=== PATIENT | male | born 1955 | race Caucasian/White ===

== ENCOUNTER 2017-05-12 17:27 | Emergency (ER) | payer OTHER, BC ==
[2017-05-12 17:42] VITALS: BP 169/91
--- NOTE | 2017-05-12 18:42 | EDM.PDOC ---
ED HPI GENERAL MEDICAL PROBLEM - General Chief Complaint: Laceration Stated Complaint: RT SHOULDER LAC Time Seen by Provider: 05/12/17 18:33 Source of Information: Reports: Patient History Limitations: Reports: No Limitations - History of Present Illness INITIAL COMMENTS - FREE TEXT/NARRATIVE: Patient is a 62-year-old male who was replacing a sink and while carring out the porcelain sink it shattered causing a puncture wound to his right shoulder and small laceration to his chin. This occurred approximately 1600 hrs. He still has some mild bleeding from the shoulder puncture. He does take baby aspirin daily. Otherwise he does not have any additional complaints at this time. Tetanus status is up-to-date. - Related Data Allergies Allergy/AdvReac Type Severity Reaction Status Date / Time No Known Allergies Allergy Verified 05/12/17 17:38 Home Meds: Home Meds Benazepril [Lotensin] 40 mg PO DAILY 09/24/16 [History] Ezetimibe/Simvastatin [Vytorin 10-40 mg Tablet] 1 tab PO DAILY 09/24/16 [History ] Insulin Glargine,Hum.Rec.Anlog [[place] Solostar] 70 units SUBCUT DAILY 09/24/16 [History] Insulin Regular, Human [Novolin R] 10 units SUBCUT ASDIRECTED 09/24/16 [History] [place]-3 Fatty Acids [Fish Oil] 2,000 mg PO DAILY 09/24/16 [History] SitaGLIPtin [Januvia] 50 mg PO DAILY 09/24/16 [History] Past Medical History HEENT History: Reports: Impaired Vision Cardiovascular History: Reports: Hypertension Endocrine/Metabolic History: Reports: Diabetes, Type II - Infectious Disease History Infectious Disease History: Reports: Chicken Pox, Measles, Mumps - Past Surgical History Neurological Surgical History: Reports: Other (See Below) Social & Family History - Tobacco Use Smoking Status *Q: Current Every Day Smoker Years of Tobacco use: 30 Packs/Tins Daily: 0.2 Used Tobacco, but Quit: No - Caffeine Use Caffeine Use: Reports: Coffee - Recreational Drug Use Recreational Drug Use: No ED ROS GENERAL - Review of Systems Review Of Systems: ROS reveals no pertinent complaints other than HPI. ED EXAM, SKIN/RASH Exam: See Below Exam Limited By: No Limitations General Appearance: Alert, WD/WN, No Apparent Distress, Other (Small superficial laceration to the anterior chin.) Ears: Hearing Grossly Normal Nose: Normal Inspection Throat/Mouth: Normal Voice, No Airway Compromise Neck: Normal Inspection, Supple Respiratory/Chest: No Respiratory Distress, No Accessory Muscle Use Cardiovascular: Normal Peripheral Pulses, Regular Rate, Rhythm Peripheral Pulses: 2+: Radial (R) Extremities: Other (Small puncture wound to the right anterior shoulder with oozing of blood present. No painful range of motion noted. Questionable porcelain foreign body.) Neurological: Alert, Oriented, Normal Cognition, No Motor/Sensory Deficits Psychiatric: Normal Affect, Normal Mood Skin: Warm, Dry, Intact, Normal Color, No Rash ED SKIN PROCEDURES - Laceration/Wound Repair Right Shoulder Lac/Wound length In cm: 0.2 Appearance: Clean Distal NVT: Neuro & Vascular Intact Anesthetic Type: Local Local Anesthesia - Lidocaine (Xylocaine): 1% With EPI Local Anesthetic Volume: 2cc Skin Prep: Chlorhexidine (Hibiciens), Saline, Sterile Drape Exploration/Debridement/Repair: Wound Explored, Explored to Base, No Foreign Material Found Suture Size: 4-0 # of Sutures: 1 Suture Type: Prolene, Interrupted, Simple Drain Placement: No Sterile Dressing Applied: Nurse Tetanus Status Addressed: Yes Complications: No Course - Vital Signs Last Recorded V/S: Last Vital Signs Temp 96.5 F 05/12/17 17:39 Pulse 78 05/12/17 17:39 Resp 18 05/12/17 17:39 BP 169/91 H 05/12/17 17:39 Pulse Ox 98 05/12/17 17:39 - Orders/Labs/Meds Orders: Active Orders 24 hr Category Date Time Status Shoulder 1V Rt [CR] Stat Exams 05/12/17 18:39 Taken Meds: Medications Discontinued Medications Generic Name Dose Route Start Last Admin Trade Name Kitq PRN Reason Stop Dose Admin Lidocaine/Epinephrine 20 ml 05/12/17 19:51 05/12/17 19:55 Xylocaine 1% With Epinephrine 1:100,000 INJECT 05/12/17 19:52 20 ml ONETIME ONE Administration - Re-Assessments/Exams Free Text/Narrative Re-Assessment/Exam: Obtain x-ray of the right shoulder to evaluate for foreign object. X-ray did not reveal any foreign object that was radiopaque. Bleeding ceased with one suture. Dressing applied per nursing. Discharge instructions as documented. Departure - Departure Time of Disposition: :06 Disposition: Home, Self-Care 01 Condition: Good Clinical Impression: Puncture wound Facial laceration Qualifiers: Encounter type: initial encounter Qualified Code(s): S01.81XA - Laceration without foreign body of other part of head, initial encounter - Discharge Information Instructions: Puncture Wound, [id number], Laceration Care, Adult, Easy-to- Read, Stitches, [place], or Adhesive Wound Closure, [id number] Referrals: Krishan Oliver MD [Primary Care Provider] - Forms: ED Department Discharge, ED Return to Work/School Form Additional Instructions: Cleanse site twice daily with soap and water, pat dry, reapply triple antibiotic ointment. Sutures to be removed in 7 days. Return to the ED if you experience increased redness, purulent drainage, fever/chills, or any additional new complaints. - My Orders Last 24 Hours: My Active Orders 05/12/17 18:39 Shoulder 1V Rt [CR] Stat - Assessment/Plan Last 24 Hours: My Active Orders 05/12/17 18:39 Shoulder 1V Rt [CR] Stat
[2017-05-12] MEDS ORDERED: Lidocaine 1% with EPINEPHrine 1:100,000 20 ML MDV INJECT ONE (19:51)
--- NOTE | 2017-05-13 07:09 | CR ---
Right shoulder: Single AP view of the right shoulder was obtained. Comparison: No previous study. Slight calcification is seen above the right acromioclavicular joint. Acromioclavicular joint appears slightly narrowed. Glenohumeral joint is unremarkable. No opaque foreign object is seen. No acute bony abnormality is seen. Impression: 1. Incidental findings. 2. No opaque foreign object is identified. No acute bony abnormality is seen. Diagnostic code #2
== END 2017-05-12 20:10 | disposition home or self-care (01) ==
LOC: JD.ED 17:27
DX: S41.031A Puncture wound without foreign body of right shoulder, initial encounter (principal); S01.81XA Laceration without foreign body of other part of head, initial encounter; F17.210 Nicotine dependence, cigarettes, uncomplicated; I10 Essential (primary) hypertension; E11.9 Type 2 diabetes mellitus without complications; Z79.4 Long term (current) use of insulin; Z79.82 Long term (current) use of aspirin; W22.8XXA Striking against or struck by other objects, initial encounter
CPT/HCPCS: 12001; 73020-26-RT; 73020-RT; 99282-25; 99283-25

== ENCOUNTER 2018-03-12 07:45 | Day surgery (SDC) | payer BC, OTHER ==
[2018-03-12] MEDS: Polymyxin B/Trimethoprim 10 ML Bottle EYERT SCH ×4 (08:01→09:51)
[2018-03-12] MEDS: Brimonidine 0.2% Ophth Soln 5 ML Bottle EYERT SCH ×4 (08:06→09:51)
--- NOTE | 2018-03-12 08:07 | PCM.PREANE ---
Preanesthetic Assessment - Anesthesia/Transfusion/Family Hx Anesthesia History: Prior Anesthesia Without Reaction Family History of Anesthesia Reaction: No Transfusion History: No Prior Transfusion(s) - Review of Systems General: No Symptoms Pulmonary: No Symptoms Cardiovascular: No Symptoms Gastrointestinal: No Symptoms Neurological: No Symptoms Other: Reports: Diabetes - Physical Assessment NPO Status Date: 03/11/18 NPO Status Time: 00:00 Pulse: 76 O2 Sat by Pulse Oximetry: 93 Respiratory Rate: 20 Blood Pressure: 138/67 Temperature: 36.7 C Height: 1.88 m Weight: 99.79 kg ASA Class: 2 Mental Status: Alert & Oriented x3 Airway Class: Mallampati = 1 Dentition: Reports: Normal Dentition, Car[place] Thyro-Mental Finger Breadths: 3 Mouth Opening Finger Breadths: 3 ROM/Head Extension: Full Lungs: Clear to Auscultation, Normal Respiratory Effort Cardiovascular: Regular Rate, Regular Rhythm - Allergies Allergies/Adverse Reactions: Allergies Allergy/AdvReac Type Severity Reaction Status Date / Time No Known Allergies Allergy Verified 03/11/18 15:17 - Blood Blood Available: No Product(s) Available: None - Anesthesia Plan Pre-Op Medication Ordered: None - Acknowledgements Anesthesia Type Planned: MAC Pt an Appropriate Candidate for the Planned Anesthesia: Yes Alternatives and Risks of Anesthesia Discussed w Pt/Guardian: Yes Pt/Guardian Understands and Agrees with Anesthesia Plan: Yes PreAnesthesia Questionnaire HEENT History: Reports: Impaired Vision Cardiovascular History: Reports: Hypertension Endocrine/Metabolic History: Reports: Diabetes, Type II - Infectious Disease History Infectious Disease History: Reports: Chicken Pox, Measles, Mumps - Past Surgical History Neurological Surgical History: Reports: Other (See Below) - SUBSTANCE USE Smoking Status *Q: Current Every Day Smoker Tobacco Use Within Last Twelve Months: Cigarettes Second Hand Smoke Exposure: No Days Per Week of Alcohol Use: 0 Number of Drinks Per Day: 0 Total Drinks Per Week: 0 Recreational Drug Use History: No - HOME MEDS Home Medications: Home Meds Benazepril [Lotensin] 40 mg PO DAILY 09/24/16 [History] Ezetimibe/Simvastatin [Vytorin 10-40 mg Tablet] 1 tab PO DAILY 09/24/16 [History ] Insulin Glargine,Hum.Rec.Anlog [Toucrystal Solostar] 55 units SUBCUT DAILY 09/24/16 [History] Aspirin 81 mg PO DAILY 03/11/18 [History] Fish Oil/[place]-3 Fatty Acids [Fish Oil 1,000 MG] 2 gm PO BID 03/11/18 [History] Insulin Aspart [NovoLOG] 5 units SQ BID 03/11/18 [History] Multivitamin [Poly-Vitamin] 1 tab PO DAILY 03/11/18 [History] SitaGLIPtin [Januvia] 100 mg PO DAILY 03/11/18 [History] amLODIPine [Norvasc] 2.5 mg PO DAILY 03/11/18 [History] metFORMIN HCl [Metformin HCl] 1,000 mg PO BID 03/11/18 [History] - CURRENT (IN HOUSE) MEDS Current Meds: Current Medications Brimonidine Tartrate (Alphagan 0.2% Ophth Soln) 0 ml EYERT ASDIRECTED DAMIAN Stop: 03/12/18 18:00 Cefuroxime Sodium (Zinacef) 0 mg EYERT ASDIRECTED DAMIAN Stop: 03/12/18 18:00 Lidocaine HCl (Xylocaine-Mpf 1%) 0 ml INJECT ASDIRECTED DAMIAN Stop: 03/12/18 18:00 Phenylephrine HCl (Gene-Synephrine 2.5% Ophth Soln) 0 ml EYERT ASDIRECTED DAMIAN Stop: 03/12/18 18:00 Pilocarpine HCl (Pilocar 4% Ophth Soln) 0 ml EYERT ASDIRECTED DAMIAN Stop: 03/12/18 18:00 Polymyxin/Trimethoprim Sulfate (Polytrim Ophth Soln) 0 ml EYERT ASDIRECTED DAMIAN Stop: 03/12/18 18:00 Tetracaine HCl (Tetracaine 0.5% Steri-Unit Kathy) 0 ml EYERT ASDIRECTED DAMIAN Stop: 03/12/18 18:00 Tropicamide (Mydriacyl 1% Ophth Soln) 0 ml EYERT ASDIRECTED DAMIAN Stop: 03/12/18 18:00
[2018-03-12] MEDS: Phenylephrine 2.5% Ophth Soln 2 ML Bot EYERT SCH ×6 (08:11→09:26)
[2018-03-12] MEDS: Tropicamide 1% Ophth Soln 3 ML Bottle EYERT SCH ×4 (08:16→09:00)
[2018-03-12] MEDS: Lidocaine 1% PF 2 ML SDV INJECT SCH ×2 (08:35→09:37)
[2018-03-12] MEDS: Tetracaine HCl/PF 0.5% 4 ML Bottle EYERT SCH ×3 (08:35→09:37)
[2018-03-12] MEDS: Pilocarpine 4% Ophth Soln 15 ML Bot EYERT SCH ×2 (08:36→09:51)
[2018-03-12] MEDS: Cefuroxime 10 MG/ML SYRINGE EYERT SCH ×2 (08:36→09:50)
[2018-03-12 10:15] VITALS: BP 138/67
--- NOTE | 2018-03-12 10:15 | PCM48HPAN ---
Post Anesthesia Note - EVALUATION WITHIN 48HRS OF ANESTHETIC Vital Signs in Normal Range: Yes Patient Participated in Evaluation: Yes Respiratory Function Stable: Yes Airway Patent: Yes Cardiovascular Function Stable: Yes Hydration Status Stable: Yes Pain Control Satisfactory: Yes Nausea and Vomiting Control Satisfactory: Yes Mental Status Recovered: Yes Pulse Rate: 76 Resp Rate: 18 Temperature: 36.7 C Blood Pressure: 138/67
== END 2018-03-12 10:02 | disposition home or self-care (01) ==
LOC: JD.SDS 07:45
PROVIDERS: ATTEND Ophthalmology
DX: H25.813 Combined forms of age-related cataract, bilateral (principal); H02.831 Dermatochalasis of right upper eyelid; H02.834 Dermatochalasis of left upper eyelid; H11.153 Pinguecula, bilateral; E10.9 Type 1 diabetes mellitus without complications; I10 Essential (primary) hypertension; F17.210 Nicotine dependence, cigarettes, uncomplicated; Z79.4 Long term (current) use of insulin; Z79.82 Long term (current) use of aspirin; Z79.899 Other long term (current) drug therapy; Z83.518 Family history of other specified eye disorder
CPT/HCPCS: A9270-GY; C1780; J0697; J2001

== ENCOUNTER 2018-04-09 07:16 | Day surgery (SDC) | payer OTHER ==
[~2018-04-09 07:16] MED LIST: Cefuroxime 10 MG/ML SYRINGE EYELF SCH; Lidocaine 1% PF 2 ML SDV INJECT SCH; Pilocarpine 4% Ophth Soln 15 ML Bot EYELF SCH
[2018-04-09] MEDS: Polymyxin B/Trimethoprim 10 ML Bottle EYELF SCH ×3 (07:32→09:18)
[2018-04-09] MEDS: Brimonidine 0.2% Ophth Soln 5 ML Bottle EYELF SCH ×3 (07:37→09:18)
[2018-04-09] MEDS: Phenylephrine 2.5% Ophth Soln 2 ML Bot EYELF SCH ×5 (07:44→09:00)
[2018-04-09] MEDS: Tropicamide 1% Ophth Soln 3 ML Bottle EYELF SCH ×4 (07:48→08:31)
--- NOTE | 2018-04-09 07:59 | PCM.PREANE ---
Preanesthetic Assessment - Procedure Proposed Procedure: Left eye cataract extraction with IOL - Anesthesia/Transfusion/Family Hx Anesthesia History: Prior Anesthesia Without Reaction Family History of Anesthesia Reaction: No Transfusion History: No Prior Transfusion(s) Additional History: cervical neck fusion - Review of Systems General: No Symptoms Pulmonary: No Symptoms Cardiovascular: Other (HTN) Gastrointestinal: No Symptoms Neurological: No Symptoms Other: Reports: None - Physical Assessment NPO Status Date: 04/08/18 NPO Status Time: 19:00 O2 Sat by Pulse Oximetry: 95 Respiratory Rate: 16 Vital Signs: Last Vital Signs Temp 36.2 C 04/09/18 07:25 Pulse 66 04/09/18 07:25 Resp 16 04/09/18 07:25 BP 142/73 H 04/09/18 07:25 Pulse Ox 95 04/09/18 07:25 Height: 1.85 m Weight: 99.79 kg ASA Class: 2 Mental Status: Alert & Oriented x3 Airway Class: Mallampati = 2 Dentition: Reports: Normal Dentition Thyro-Mental Finger Breadths: 3 Mouth Opening Finger Breadths: 3 ROM/Head Extension: Full Lungs: Clear to Auscultation, Normal Respiratory Effort Cardiovascular: Regular Rate, Regular Rhythm - Allergies Allergies/Adverse Reactions: Allergies Allergy/AdvReac Type Severity Reaction Status Date / Time No Known Allergies Allergy Verified 03/11/18 15:17 - Blood Blood Available: No Product(s) Available: None - Anesthesia Plan Pre-Op Medication Ordered: None - Acknowledgements Anesthesia Type Planned: MAC Pt an Appropriate Candidate for the Planned Anesthesia: Yes Alternatives and Risks of Anesthesia Discussed w Pt/Guardian: Yes Pt/Guardian Understands and Agrees with Anesthesia Plan: Yes PreAnesthesia Questionnaire HEENT History: Reports: Impaired Vision Cardiovascular History: Reports: Hypertension Endocrine/Metabolic History: Reports: Diabetes, Type II - Infectious Disease History Infectious Disease History: Reports: Chicken Pox, Measles, Mumps - Past Surgical History Neurological Surgical History: Reports: Other (See Below) - HOME MEDS Home Medications: Home Meds Benazepril [Lotensin] 40 mg PO DAILY 09/24/16 [History] Ezetimibe/Simvastatin [Vytorin 10-40 mg Tablet] 1 tab PO DAILY 09/24/16 [History ] Insulin Glargine,Hum.Rec.Anlog [[place] Solostar] 55 units SUBCUT DAILY 09/24/16 [History] Aspirin 81 mg PO DAILY 03/11/18 [History] Fish Oil/[place]-3 Fatty Acids [Fish Oil 1,000 MG] 2 gm PO BID 03/11/18 [History] Insulin Aspart [NovoLOG] 5 units SQ BID 03/11/18 [History] Multivitamin [Poly-Vitamin] 1 tab PO DAILY 03/11/18 [History] SitaGLIPtin [Januvia] 100 mg PO DAILY 03/11/18 [History] amLODIPine [Norvasc] 2.5 mg PO DAILY 03/11/18 [History] metFORMIN HCl [Metformin HCl] 1,000 mg PO BID 03/11/18 [History] - CURRENT (IN HOUSE) MEDS Current Meds: Current Medications Brimonidine Tartrate (Alphagan 0.2% Ophth Soln) 0 ml EYELF ASDIRECTED DAMIAN Stop: 04/09/18 18:00 Last Admin: 04/09/18 07:37 Dose: 1 drop Cefuroxime Sodium (Zinacef) 0 mg EYELF ASDIRECTED DAMIAN Stop: 04/09/18 18:00 Lidocaine HCl (Xylocaine-Mpf 1%) 10 ml INJECT ASDIRECTED DAMIAN Stop: 04/09/18 18:00 Phenylephrine HCl (Gene-Synephrine 2.5% Ophth Soln) 0 ml EYELF ASDIRECTED DAMIAN Stop: 04/09/18 18:00 Last Admin: 04/09/18 07:53 Dose: 1 drop Pilocarpine HCl (Pilocar 4% Ophth Soln) 0 ml EYELF ASDIRECTED DAMIAN Stop: 04/09/18 18:00 Polymyxin/Trimethoprim Sulfate (Polytrim Ophth Soln) 0 ml EYELF ASDIRECTED DAMIAN Stop: 04/09/18 18:00 Last Admin: 04/09/18 07:32 Dose: 1 drop Tetracaine HCl (Tetracaine 0.5% Steri-Unit Kathy) 0 ml EYELF ASDIRECTED DAMIAN Stop: 04/09/18 18:00 Tropicamide (Mydriacyl 1% Ophth Soln) 0 ml EYELF ASDIRECTED DAMIAN Stop: 04/09/18 18:00 Last Admin: 04/09/18 07:48 Dose: 1 drop
[2018-04-09] MEDS: Tetracaine HCl/PF 0.5% 4 ML Bottle EYELF SCH ×2 (08:50→09:06)
--- NOTE | 2018-04-09 09:26 | PCM48HPAN ---
Post Anesthesia Note - EVALUATION WITHIN 48HRS OF ANESTHETIC Vital Signs in Normal Range: Yes Patient Participated in Evaluation: Yes Respiratory Function Stable: Yes Airway Patent: Yes Cardiovascular Function Stable: Yes Hydration Status Stable: Yes Pain Control Satisfactory: Yes Nausea and Vomiting Control Satisfactory: Yes Mental Status Recovered: Yes
[2018-04-09 09:29] VITALS: BP 150/78
== END 2018-04-09 09:26 | disposition home or self-care (01) ==
LOC: JD.SDS 07:16
PROVIDERS: ATTEND Ophthalmology
DX: H25.812 Combined forms of age-related cataract, left eye (principal); H11.153 Pinguecula, bilateral; H52.31 Anisometropia; H02.834 Dermatochalasis of left upper eyelid; H02.831 Dermatochalasis of right upper eyelid; E10.36 Type 1 diabetes mellitus with diabetic cataract; I10 Essential (primary) hypertension; F17.200 Nicotine dependence, unspecified, uncomplicated; Z98.41 Cataract extraction status, right eye; Z96.1 Presence of intraocular lens; Z83.518 Family history of other specified eye disorder; Z79.4 Long term (current) use of insulin; Z79.82 Long term (current) use of aspirin; Z79.899 Other long term (current) drug therapy
CPT/HCPCS: 66984; C1780; J0697; J2001; A9270-GY